=== PATIENT | female | born 1980 | race Caucasian/White ===

== ENCOUNTER → 2018-06-23 | Outpatient (CLI) | payer BC ==
--- NOTE | 2018-06-23 15:29 | PFTRPT ---
Height: 64.00 Inches Weight: 180.00 Lbs BSA: 1.87 Diagnosis: R91.8 DATE OF PROCEDURE: 06/23/2018 ORDERED BY: Dr. Vazquez Spirometry: Pre and post bronchodilator study of excellent technical quality. Forced vital capacity normal. FEV1 in proportion. Obstructive index is, therefore, normal. Flow Volume Loop: Expiratory limb of the flow volume loop is normal. No bronchodilator response identified. Lung Volumes: Total lung capacity is normal. Residual volume is in proportion. Diffusing Capacity: Diffusing capacity normal. Hemoglobin: Hemoglobin acceptable at 13.6. Airway Mechanics: Airway resistance and conductance are normal. IMPRESSION: Normal study. MTDD
== END ==
LOC: M CARPUL 12:37
PROVIDERS: ATTEND Internal Medicine Pulmonary Disease
DX: R91.8 Other nonspecific abnormal finding of lung field (principal)

== ENCOUNTER → 2018-07-26 | Outpatient (CLI) | payer BC ==
[~2018-07-26] MED LIST: METHACHOLINE KIT (J7674) INH ONE
--- NOTE | 2018-07-26 16:04 | PFTRPT ---
Height: 64.00 Inches Weight: 181.00 Lbs BSA: 1.87 Diagnosis: R91.8 DATE OF PROCEDURE: 07/26/2018 ORDERED BY: Dr. Nino Vazquez INTERPRETATION: Excellent technical quality. Under protocol, methacholine was administered. At a dose of 2.5 mg (13.875 CDUs), a 25% decline in the FEV1 was noted. PC of 0.74 is significant. Flow rates did return to baseline post bronchodilator administration. IMPRESSION: Positive methacholine challenge study. MTDD
== END ==
LOC: M CARPUL 14:47
PROVIDERS: ATTEND Internal Medicine Pulmonary Disease
DX: R91.8 Other nonspecific abnormal finding of lung field (principal)
CPT/HCPCS: 94070; J7674

== ENCOUNTER → 2018-09-05 | Outpatient (CLI) | payer BC ==
--- NOTE | 2018-09-06 20:02 | SLEEPHOME ---
DATE OF PROCEDURE: 09/05/2018 ORDERED BY: ADRIANA Yeager Diagnostic home sleep testing was performed due to concern for the obstructive sleep apnea syndrome in this patient with a history of excessive somnolence and nonrestorative sleep. For testing a nocturnal T3 respiratory monitoring device was used. Continuous record was made of pulse, oxygen saturation, airflow, chest, abdominal strain and body position. 9 hours and 59 minutes of data were reviewed. There were 7 hours and 17 minutes marked as time in bed. During the interval marked time in bed, there were only 19 respiratory events identified of 10 seconds in duration or greater for a respiratory event index of 2.6. The events that were seen were obstructive and perhaps more frequent in the supine posture. Baseline pulse rate 72 beats per minute, pulse rate ranged 55-111. Baseline saturation 94%. No saturations below 91% were seen and testing was performed in both the supine and nonsupine positions. IMPRESSION: Normal diagnostic home sleep test with minor respiratory patterning.
== END ==
LOC: M SLEEP HO 11:02
PROVIDERS: ATTEND Nurse Practitioner Family
DX: R40.0 Somnolence (principal)

== ENCOUNTER → 2024-06-13 | Outpatient (CLI) | payer BC ==
[~2024-06-13] MED LIST changes: +LIDOCAINE 1% MDV 20ML VIAL As Ordered ONE; -METHACHOLINE KIT (J7674) INH ONE
[2024-06-13 08:35] VITALS: TEMP 98.5
[2024-06-13 09:09] VITALS: BP 135/71; O2SAT 98
== END ==
LOC: M IRPRO 08:16
PROVIDERS: ATTEND Otolaryngology
DX: E04.2 Nontoxic multinodular goiter (principal)